=== PATIENT | female | born 1980 | race Two or more races ===

== ENCOUNTER 2019-06-30 11:52 | Emergency (ER) | payer MEDICAID ==
[~2019-06-30] VITALS: Ht 165.1 cm; Wt 68.0 kg
[2019-06-30 12:05] VITALS: BP 135/91
[2019-06-30] MEDS ORDERED: HYDROcodone-ACET 5/325MG TAB PO ONE (13:00)
== END 2019-06-30 13:34 | disposition home or self-care (01) ==
LOC: ER 11:53
DX: S80.12XA Contusion of left lower leg, initial encounter (principal); N39.0 Urinary tract infection, site not specified; E11.9 Type 2 diabetes mellitus without complications; I10 Essential (primary) hypertension; Z88.5 Allergy status to narcotic agent; Z88.6 Allergy status to analgesic agent; X58.XXXA Exposure to other specified factors, initial encounter; Y93.89 Activity, other specified; Y92.89 Other specified places as the place of occurrence of the external cause; Y99.8 Other external cause status
CPT/HCPCS: 73590; 81025